=== PATIENT | male | born 1985 | race Caucasian/White ===

== ENCOUNTER 2023-12-20 18:42 | Emergency (ER) | payer OTHER, SELFPAY ==
--- NOTE | ~2023-12-20 | CT_ITS ---
EXAMINATION: CT abdomen pelvis w con DATE: 12/20/2023 21:04 INDICATION: right groin mass X 1 WEEK. TECHNIQUE: Computed tomography (CT) of the abdomen and pelvis was performed with 100 mL Omnipaque-350 intravenous contrast. Automated exposure control and iterative reconstruction technique were employe d. The dose-length product was 1911.44 mGy-cm. COMPARISON: None. FINDINGS: Lower thorax: Unremarkable Liver: Normal. Biliary/Gallbladder: Gallbladder is normal. No bile duct dilation. Pancreas: No mass or duct dilation. Spleen: Normal. Adrenals:Indeterminate density 1.9 cm left adrenal lesion. Normal right adrenal gland. Kidneys: No suspicious mass, obstructing stone, or hydronephrosis. Bilateral medullary nephrocalcinos is. GI tract: No small or large bowel dilation. Normal appendix. Mesentery/Peritoneum: No ascites or free air. Retroperitoneum: 5.8 x 6.2 x 7.2 cm conglomerate soft tissue retroperitoneal mass to the right of the distal which displaces and flattens the traversing inferior vena cava, with multiple adjacent enlarg ed lymph nodes. Pelvis: Incompletely descended testicles. The right testicle is enlarged measuring 6.4 x 10.9 cm. mod erate right hydrocele. Normal urinary bladder and prostate. Soft Tissues: Soft tissues and body wall unremarkable. Bones: No acute osseous finding. IMPRESSION: Indeterminate density 1.9 cm left adrenal lesion, consider adrenal CT for further evaluation. Markedly enlarged right testicle, concerning for malignancy, with precaval lymphadenopathy concerning for metastatic disease. Moderate right hydrocele. Reviewed, dictated and finalized at location K. IMPRESSION: Indeterminate density 1.9 cm left adrenal lesion, consider adrenal CT for furth er evaluation. Markedly enlarged right testicle, concerning for malignancy, with precaval lymp hadenopathy concerning for metastatic disease. Moderate right hydrocele.
[2023-12-20 18:46] VITALS: BP 150/103; PULSE 113; RESP 18; TEMP 36.6; O2SAT 98
--- NOTE | 2023-12-20 19:00 | ED.GENADULT ---
HPI - General Adult General Chief complaint: Urogenital-Male Stated complaint: groin pain, swelling History of Present Illness HPI narrative: 38-year-old white male complains of swelling in his right groin that it has been there for about 1-2 weeks and just started hurting last 3 days. Denies any problems voiding or stooling eating or drinking walking talking seeing or hearing fever cough sore throat runny nose or any other complaints. Took some ibuprofen for it last night. Denies any previous medical problems. Related Data Home Medications Medication Instructions Recorded Confirmed No Home Medications 12/20/23 12/20/23 Allergies Allergy/AdvReac Type Severity Reaction Status Date / Time No Known Allergies Allergy Verified 12/20/23 18:44 Review of Systems Review of Systems: All systems reviewed & are unremarkable except as noted in HPI and below PMFSH Family History Family History Father Family history of malignant neoplasm, Onset Age: 46 Patient's father is Social History Social History Smoking status: Current every day smoker Second hand tobacco smoke exposure: Yes Alcohol intake: current Exam Narrative: White male patient with no apparent distress.? Head normocephalic, atraumatic.? Eyes conjunctiva pink sclera nonicteric.? Extraocular movements are intact.? Ears externally normal.? Oropharynx is clear with moist mucous membranes without exudates.? Neck is supple nontender no lymphadenopathy.? Back is nontender.? Lungs are clear.? Heart is regular rate and rhythm without murmurs gallops or rubs.? Chest wall nontender. Abdomen is soft and nontender no hepatosplenomegaly or masses no CVA tenderness no abdominal bruits.? Penis normal. Left testicle normal. Right testicle markedly enlarged with enlargement of the right inguinal area firm minimally tender. Extremities no cyanosis clubbing or edema.? Skin is warm and dry without rashes or lesions.? Neurological patient is alert and oriented x4.? Motor and sensory grossly intact.? Gait is normal. Course Vital Signs Vital signs: Vital Signs Temperature 36.6 C 12/20/23 18:46 Pulse Rate 113 H 12/20/23 18:46 Respiratory Rate 18 12/20/23 18:46 Blood Pressure 150/103 H 12/20/23 18:46 Pulse Oximetry 98 12/20/23 18:46 Oxygen Delivery Room Air 12/20/23 18:46 Temperature 36.6 C 12/20/23 18:46 Pulse Rate 113 H 12/20/23 18:46 Respiratory Rate 18 12/20/23 18:46 Blood Pressure 150/103 H 12/20/23 18:46 Pulse Oximetry 98 12/20/23 18:46 Oxygen Delivery Room Air 12/20/23 18:46 Medical Decision Making MDM Narrative Medical decision making narrative: Patient was placed in Room # One History and physical was performed. CBC normal. CMP AST of 47 ALT of 95 alk-phos 145 total protein 8.8, total protein 8.8, the rest of CMP was normal CT pelvis without: Per radiologist: Retroperitoneum: 5.8 x 6.2 x 7.2 cm conglomerate soft tissue retroperitoneal mass to the right of the distal which displaces and flattens the traversing inferior vena cava, with multiple adjacent enlarged lymph nodes. Pelvis: Incompletely descended testicles. The right testicle is enlarged measuring 6.4 x 10.9 cm. moderate right hydrocele. Normal urinary bladder and prostate. Soft Tissues: Soft tissues and body wall unremarkable. Bones: No acute osseous finding. IMPRESSION: Indeterminate density 1.9 cm left adrenal lesion, consider adrenal CT for further evaluation. Markedly enlarged right testicle, concerning for malignancy, with precaval lymphadenopathy concerning for metastatic disease. Moderate right hydrocele. Independent Historian: patient External Source Review: Differential Dx includes but not limited to: testicular mass testicular carcinoma hernia Medications were Reviewed: ibuprofen Independently
[2023-12-20 20:29] LABS: Hematocrit 46.6 % (40.0-54.0); Hemoglobin 15.8 g/dL (14.0-18.0); Mean Corpuscular HGB Conc 33.9 g/dL (32-36); Mean Corpuscular Hemoglobin 30.5 pg (27.0-31.0); Mean Platelet Volume 9.3 fl (8.7-11.0); Platelet Count Result 273 K/mm3 (150-420); Red Blood Count 5.18 M/mm3 (4.70-6.10); Red Cell Distribution Width 12.7 % (11.6-14.4); White Blood Count 6.9 K/mm3 (4.8-10.8)
[2023-12-20 20:44] LABS: Alanine Aminotransferase 95 U/L (16-63); Albumin Level 3.8 g/dL (3.4-5.0); Alkaline Phosphatase 145 U/L (46-116); Anion Gap 10 mmol/L (4-12); Aspartate Amino Transferase 47 U/L (15-37); Bilirubin,Total 0.4 mg/dL (0.00-1.00); Blood Urea Nitrogen 9 mg/dL (7-18); Calcium 9.5 mg/dL (8.5-10.1); Carbon Dioxide 27 mmol/L (21-32); Chloride 102 mmol/L (98-108); Estimated CRCL calculation 134 ml/min; Estimated Glomerular Filt Rate > 60; Glucose 117 mg/dL (70-99); Osmolality Calculated 287 mOsm/kg (285-295); Potassium 4.1 mmol/L (3.5-5.1); Sodium 139 mmol/L (136-145); Total Protein 8.8 g/dL (6.4-8.2)
[2023-12-20] MEDS: SODIUM CHLORIDE 0.9% IV 1,000 ML 999 ML IV CONT (21:03)
[2023-12-20 22:36] LABS: Add Urine Microscopic? NO; Appearance Urine Clear (Clear); Bilirubin Urine Negative (Negative); Blood Urine Trace-intact (Negative); Color Urine Light Yellow (Yellow); Glucose Urine UA Negative (Negative); Ketones Urine Negative (Negative); Leukocyte Esterase Ur Negative LEU/UL (Negative); Nitrate Urine Negative (Negative); Protein Urine Negative (Negative); Urobilinogen Urine 0.2 mg/dL (0.2-1.0); pH Urine 6.5 (5.0-8.0)
--- NOTE | 2023-12-20 22:49 | PC.NURSE ---
2234:Spoke to [facility] at [facility] about urology consult for patient. Rimma instructed me to call exchange. Dr. Mikaela Estrella is radiotelephone operator. 2038: Spoke to exchange and requested call for consult.
--- NOTE | 2023-12-20 22:51 | PC.NURSE ---
Dr. Estrella called to speak to Dr Urbina for consult.
--- NOTE | 2023-12-20 23:07 | PC.NURSE ---
ERP placed orders for additional blood tests after consult with oncologist and urologist. ERP states that pt does not have to wait for results before discharge.
[2023-12-20 23:17] VITALS: BP 180/110; PULSE 100; RESP 16; O2SAT 98
[2023-12-20 23:38] LABS: Reference Lab Test Name BHCG; Reference Lab Test Result 2
== END 2023-12-20 23:17 | disposition home or self-care (01) ==
PROVIDERS: Emergency Provider Emergency Medicine
DX: C62.01 Malignant neoplasm of undescended right testis (principal); F17.200 Nicotine dependence, unspecified, uncomplicated
CPT/HCPCS: 36415; 74177; 80053; 81003; 82105; 84702; 85027; 96360; 96361; 99284; J7030; Q9967